=== PATIENT | male | born 1960 | race Caucasian/White ===

== ENCOUNTER → 2021-02-25 11:03 | Outpatient (CLI) | payer OTHER, SELFPAY ==
--- NOTE | ~2021-02-25 | XR_ITS ---
EXAMINATION: XR knee LT 3V EXAM DATE: 02/25/2021 11:19 INDICATION: M25.562 - Pain in left knee;gen pain;no recent injury. TECHNIQUE: Three projections of the left knee. Correlation is made to contralateral knee same date. FINDINGS: There is moderate osteoarthritis at the left medial tibiofemoral compartment, mild to moder ate the patellofemoral compartment and mild at the lateral tibiofemoral compartment. Small joint effu lazaro. There are no acute fractures or dislocations identified. There is no subcutaneous gas. There are no radiopaque foreign bodies. IMPRESSION: 1. Left knee osteoarthritis, moderate at the medial tibiofemoral compartment. 2. Small joint effusion. Reviewed, dictated and finalized at location A. ING FACILITATOR
--- NOTE | ~2021-02-25 | XR_ITS ---
EXAMINATION: XR knee RT 3V EXAM DATE: 02/25/2021 11:19 INDICATION: M25.561 - Pain in right knee;gen pain;no recent injury. TECHNIQUE: Three projections of the right knee. Correlation is made to contralateral knee same date. FINDINGS: There is moderate severe right knee medial tibiofemoral compartment primary osteoarthritis, moderate the patellofemoral compartment mild to moderate the lateral tibiofemoral compartment. There is small joint effusion. There are no acute fractures or dislocations identified. There is no subcu taneous gas. There are no radiopaque foreign bodies. IMPRESSION: 1. Right knee osteoarthritis, moderate to severe at the medial tibiofemoral compartment. 2. Small joint effusion. Reviewed, dictated and finalized at location A. BING CONTRACTOR IMPRESSION: 1. Right knee osteoarthritis, moderate to severe at the medial tibiofemoral com partment. 2. Small joint effusion.
== END ==
PROVIDERS: PCP Family Medicine; Visit Provider Family Medicine
DX: M25.461 Effusion, right knee (principal); M25.462 Effusion, left knee; M17.0 Bilateral primary osteoarthritis of knee
CPT/HCPCS: 73562

== ENCOUNTER 2021-05-22 07:57 | Outpatient (CLI) | payer OTHER, SELFPAY ==
--- NOTE | 2021-05-22 08:42 | ECG_ITS ---
Measurements Intervals [place] Rate: 59 P: 41 W[place]: 179 QRS: 13 QRSD: 89 T: 7 QT: 395 QTc: 392 Interpretive Statements SINUS BRADYCARDIA CONSIDER INFERIOR INFARCT, AGE INDETERMINATE ABNORMAL ECG Electronically Signed On 05-22-2021 9:12:47 AGRICULTURAL EQUIPMENT SALES MANAGER by Pato Franco D.O.
[2021-05-22 09:43] LABS: Basophils Absolute Auto 0.1 K/mm3 (0.0-0.1); Eosinophils Absolute Auto 0.2 K/mm3 (0-0.3); Eosinophils Percent Auto 3.1 % (0-4.4); Hematocrit 49.7 % (42.0-52.0); Hemoglobin 17.5 g/dL (14.0-18.0); Immature Granulocyte Absolute 0.01 K/mm3 (0.00-0.031); Immature Granulocyte Percent A 0.2 % (0-0.5); Immature Platelet Fraction Pct 2.8 % (0.9-11.2); Lymphocytes Absolute Auto 1.36 K/mm3 (0.9-3.2); Mean Corpuscular HGB Conc 35.2 g/dl (32-36); Mean Corpuscular Hemoglobin 31.7 pg (26-34); Mean Platelet Volume 9.3 fl (7.4-10.4); Monocytes Absolute Auto 0.6 K/mm3 (0.1-0.6); Monocytes Percent Auto 11.6 % (2.6-8.5); Neutrophils Absolute Auto 3.1 K/mm3 (1.3-6.7); Neutrophils Percent Auto 58.1 % (45.5-73.1); Platelet Count Result 260 k/mm3 (150-375); Red Blood Count 5.52 M/mm3 (4.6-6.20); White Blood Count 5.2 K/mm3 (4.5-10.0)
[2021-05-22 09:46] LABS: Add Urine Microscopic? YES; Appearance Urine Clear (Clear); Bilirubin Urine Negative (Negative); Blood Urine Negative (Negative); Color Urine Yellow (Yellow); Glucose Urine UA Negative (Negative); Ketones Urine Negative (Negative); Leukocyte Esterase Ur Negative LEU/UL (Negative); Mucus Urine Rare /lpf; Nitrate Urine Negative (Negative); Protein Urine Negative (Negative); RBC Urine 0-2 /hpf (0-2); Specific Grav Ur 1.016 (1.001-1.035); Urobilinogen Urine Negative mg/dL (<2.0); WBC Urine 0-3 /hpf
[2021-05-22 09:49] LABS: Partial Thromboplastin Time 30.1 SECONDS (22.3-36.8)
[2021-05-22 09:57] LABS: Urine Cotinine NEGATIVE
[2021-05-22 10:01] LABS: Hemoglobin A1C 5.1 % (<5.7)
== END 2021-05-22 07:58 | disposition home or self-care (01) ==
LOC: ANHSURGERY 08:01
PROVIDERS: PCP Family Medicine; Visit Provider Orthopaedic Surgery
DX: M17.11 Unilateral primary osteoarthritis, right knee (principal); Z01.818 Encounter for other preprocedural examination; R00.1 Bradycardia, unspecified
CPT/HCPCS: 80307; 81001; 83036; 85025; 85055; 85610; 85730; 86850; 86900; 86901; 87081; 93005

== ENCOUNTER 2021-05-31 00:34 | Day surgery (SDC) | payer OTHER, SELFPAY ==
[2021-05-22 07:37] VITALS: BP 126/80; PULSE 60; RESP 20; TEMP 36.4; O2SAT 98
[2021-05-22 07:58] VITALS: BMI 31.2
--- NOTE | 2021-05-22 07:58 | PC.NURSE ---
Report to the Outpatient Waiting Room, entrance under the green pavilion located off [facility], at time _0600_ on date _05/31/21_. OR Time: _0730_. - You will be asked a series of questions to screen for COVID 19 for your protection. - A mask is required within the hospital. - No visitors are allowed at this time. Preoperative COVID Testing Requirements: NONE Patients may have clear liquids (water, carbonated beverages, clear teas, apple juice) until 3 hours prior to surgery (0430 AM) with a maximum of 20 ounces. - No food from midnight until time of surgery Take the following medications with a SIP of water the morning of surgery: _AMLODIPINE__ Medications to discontinue per physician _ASPIRIN, VITAMINS/SUPPLEMENTS - PT STATES LAST DOSES WAS ON 05/20/21_ Please no deodorant, or body powder the day of surgery. No jewelry (including any body piercings) or valuables the day of surgery, leave them at home. Please take a shower or bath the night before, or the morning of, surgery with an antibacterial soap. Wear comfortable, loose fitting clothing. - Jewelry must be removed prior to entering the operating room. Rings and piercings that are not removed may be cut off. - The hospital will not accept responsibility for valuables. - Please leave all valuables, including medications, at home the day of surgery. If you are going home after surgery, a licensed parts delivery driver must drive you home. - NO public transportation without another adult. - We recommend that an adult stay with you for 24 hours following discharge. - We also recommend that you do not drive, make important decision, drink alcoholic beverages, or take any drugs that were not prescribed by your health care provider for at least 24 hours after your discharge time. Follow any additional instructions given to you from your surgeon. TOTAL JOINT CLASS 05/24/21 [facility] 1000 AM, USE MAIN ENTRANCE - LOWER LEVEL Instructions given to ____PT and asked if any additional questions and then verbalized understanding. Patient advised to call surgeon office or pre surgery nurse liaison [phone] if any additional questions.
[2021-05-31] VITALS (12 sets, daily range): BP systolic 120–143; BP diastolic 64–87; PULSE 58–94; RESP 12–20; TEMP 36–37.1; O2SAT 94–100; BMI 31.6
--- NOTE | ~2021-05-31 | XR_ITS ---
EXAMINATION: XR knee RT 2V DATE: 05/31/2021 10:32 INDICATION: Postoperative evaluation following right total knee arthroplasty. TECHNIQUE: Anteroposterior and lateral views of the right knee were obtained. COMPARISON: None. FINDINGS: Right total knee arthroplasty without patellar resurfacing appears well seated and in near anatomic a lignment. No fractures identified. Expected postoperative subcutaneous, intramedullary and intra-art icular gas. IMPRESSION: 1. Right total knee arthroplasty, negative for postoperative purposes. Reviewed, dictated and finalized at location A. TERIA AIDE
[2021-05-31] MEDS: ACETAMINOPHEN 500 MG TABLET 1000 MG PO (06:40)
[2021-05-31] MEDS: LACTATED RINGERS 1,000 ML 30 ML IV CONT ×2 (06:45→10:22)
--- NOTE | 2021-05-31 07:11 | P.PNAN_ITS ---
Anes - Initial Pre Proc Eval Procedure: Operation Date: 05/31/21 07:30 Proposed Procedures p Right Total Knee Arthroplasty - Rashaun Field MD Date/Time: 05/31/21 07:11 Surgeon: Rashaun Field MD Pre Op Diagnosis: right knee djd Patient Data Age: 61 Gender: M Height: 1.7 m Weight: 91.7 kg Last Vital Signs Temp 36.7 C 05/31/21 06:50 Pulse 58 L 05/31/21 06:50 Resp 16 05/31/21 06:50 BP 138/77 05/31/21 06:50 Pulse Ox 99 05/31/21 06:50 Allergies Allergy/AdvReac Type Severity Reaction Status Date / Time Penicillins Allergy Intermediate RASH & Verified 05/31/21 06:25 HIVES Home Medications Medication Instructions Recorded Confirmed Type aspirin 81 mg capsule 81 mg PO QAM 05/01/21 05/22/21 History amlodipine 10 mg PO QAM 05/22/21 05/31/21 History benazepril-hydrochlorothiazide 1 tablet PO QAM 05/22/21 05/31/21 History diphenhydramine HCl [ZzzQuil] 50 mg PO HS PRN 05/22/21 05/31/21 History omega-3 fatty acids [Fish Oil] 500 mg PO DAILY 05/22/21 05/22/21 History psyllium [Metamucil] 1 packet PO DAILY 05/22/21 05/31/21 History vitamin A-vitamin C-vit E-min 1 tablet PO QAM 05/22/21 05/22/21 History [Ocuvite] Patient hx anesthesia problems: none Family hx anesthesia problems: none Results Review: All pre-operative results and documents have been reviewed as part of the pre-operative evaluation. 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[employer]) State of [place] Gender identity (if verbalized by the patient): Male Sexual Orientation (if Verbalized by the Patient): Straight or Heterosexual Spiritual care concerns: No Anes - Eval Final PreProcedure Day of Procedure 05/31/21 07:11 Patient weight: obese Heart: regular rate and rhythm Lungs: clear to auscultation Airway: Mallampati scale class II Neurological: alert and oriented Last oral intake: >/= 8 hours ASA classification: III Emergent: no Anesthetic plan: proceed Anesthesia type and monitoring: general LMA and standard monitoring Results Review: All pre-operative results and documents have been reviewed as part of the pre-operative evaluation. Informed Consent: The patient's anesthetic plan and its attendant risks and benefits were discussed with the patient/family/POA. Questions were solicited and answers provided to the satisfaction of the patient/family/POA.
[2021-05-31] MEDS: TRANEXAMIC ACID 1,000MG/ISO100 1,000 MG/100 ML BAG 200 MG IVPB (07:14)
--- NOTE | 2021-05-31 07:24 | WPDHPUPDATE1 ---
History and Physical Update Update Date/Time: 05/31/21 07:24 History and Physical has been reviewed, including an updated exam of the patient. There are NO changes in the patient's condition. Risks, benefits, and alternatives have been discussed and questions answered. Patient agrees to proceed with procedure.
--- NOTE | 2021-05-31 07:36 | WPDANESPNB ---
Anes - Peripheral Nerve Block Date/Time: 05/31/21 07:36 I have discussed with the patient/family/POA the placement of a peripheral nerve block for post-operative pain management, including associated risks, benefits, complications, and side effects. Alternative methods of post-operative analgesia were detailed. Questions were solicited and answers provided to the satisfaction of the patient/family/POA. Time-Out: A pre-procedural Time-Out was completed immediately before starting the procedure and confirmed: Patient Identification, Site, Procedure, Patient Position and the Availability of Requisite Equipment. Clinical Indications: Acute post-operative pain management requested by the operative surgeon. Nerve Block Insertion Note Anes-nerve block: adductor canal right Patient position: supine Skin prep: chlorhexidine Needle: 22 gauge, stimulating, insulated echogenic needle. Needle length: 80 mm Technique: ultrasound Technique comment: mid2mg [id number] Injectate: bupivacaine 0.5% with epi 5 mcg/ml (30ml) and dexamethasone (mg) (4) Observations: tolerated well Complications: none Procedure start time:: 724 Procedure end time:: 731
[2021-05-31] MEDS: ceFAZolin 2 GM/D5W 50 ML 2 GM/50 ML BAG IVPB ×3 (07:37→23:27)
[2021-05-31] MEDS: TRANEXAMIC ACID 1,000 MG/10 ML AMPUL 1000 MG IV PUSH (09:31)
--- NOTE | 2021-05-31 10:35 | P.OP_ITS ---
Procedure Note - Detailed Date of Procedure 05/31/21 Pre-op Diagnosis right knee djd Post-op Diagnosis same Procedure Performed R TKA Surgeon Rashaun Field MD Anesthesia general Description of Procedure THE RIGHT KNEE WAS PREPPED AND DRAPED IN THE STERILE FASHION. THERE WAS A 20 DEGREE FLEXION CONTRACTURE. A MIDLINE SKIN INCISION WAS MADE. A MEDIAL PARAPATELLAR ARTHROTOMY WAS MADE. THE PATELLA WAS EVERTED. THERE WAS TRICOMPARTMENT DJD. THERE WAS MINIMAL PATELLA DJD. AN INTRAMEDULLARY JOSE ALFREDO WAS PLACED IN THE FEMUR. A DISTAL FEMORAL CUT WAS MADE IN 5 DEGREES OF VALGUS REMOVING APPROXIMATELY 11 MM OF BONE FROM THE DISTAL FEMUR. THE FEMUR WAS SIZED TO 67.5. A 67.5 FEMORAL CUTTING BLOCK WAS PLACED IN 3 DEGREES OF EXTERNAL ROTATION AND IN ALIGNMENT WITH ENRIKE'S LINE AND THE TRANSEPICONDYLAR AXIS. ANTERIOR POSTERIOR AND CHAMFER CUTS WERE MADE. THE CUTS WERE EXCELLENT. NEXT AN INTRAMEDULLARY CUTTING GUIDE WAS PLACED IN THE TIBIA. A TRANS TIBIAL CUT WAS MADE ALONG THE LONG AXIS OF THE TIBIA. APPROXIMATELY 10 MM OF BONE WAS REMOVED FROM THE HIGH SIDE OF THE TIBIA. THE TIBIA WAS THEN PLANED TO A SMOOTH SURFACE. POSTERIOR FEMORAL OSTEOPHYTES WERE REMOVED FROM THE FEMORAL CONDYLES. A 79 TIBIAL TRIAL WAS PLACED IN ALIGNMENT WITH THE 1/3 MEDIAL ASPECT OF THE TIBIAL TUBERCLE. THEN A 67.5 FEMORAL TRIAL COMPONENT WAS PLACED. BOTH HAD EXCELLENT FITS. EVENTUALLY A 12 MM CR POLYETHYLENE TRIAL COMPONENT WAS PLACED. THE KNEE WAS TAKEN THROUGH A RANGE OF MOTION. THE KNEE CAME OUT TO FULL EXTENSION. THERE WAS NO ABNORMAL TILT TO THE PATELLA. THERE WAS GOOD A/P AND VARUS/VALGUS STABILITY. THERE WAS NO EXCESSIVE ROLL BACK WITH FLEXION. THE TRIAL COMPONENTS WERE REMOVED. THEN A 67.5 FEMORAL COMPONENT AND 79 TIBIAL COMPONENT WITH A 12 CR POLYETHYLENE COMPONENT WERE CEMENTED INTO PLACE. ONCE THE CEMENT WAS HARD THE KNEE WAS TAKEN THROUGH A ROM AGAIN AND FOUND TO BE STABLE WITH NO PATELLA TILT NO EXCESSIVE ROLL BACK WITH FLEXION AND GOOD STABILITY WITH COMPLETE AND FULL EXTENSION. THE KNEE WAS IRRIGATED WITH STERILE BETADINE AND WATER FOR ABOUT 3 MINUTES. THE BLEEDERS WERE CAUTERIZED. THE ARTHROTOMY WAS REPAIRED WITH NUMBER 1 VICRYL. THE SUB CUTANEOUS LAYER WITH 2-0 VICRYL AND THE SKIN WITH 3-0 STRATAFIX AND DERMABOND. THE WOUND WAS WASHED AND A STERILE DRESSING WAS POLINA LIED. PATIENT WAS EXTUBATED. Estimated Blood Loss -150.0 Pathology none sent Complications No immediate complications Condition stable Disposition PACU
[2021-05-31] MEDS: fentaNYL CITRATE INJ (*CRX) 100 MCG/2 ML VIAL 25 MCG IV PUSH ×3 (11:10→11:21)
[2021-05-31] MEDS: SODIUM CHLORIDE 0.9% IV 1,000 ML 125 ML IV CONT (12:29)
[2021-05-31] MEDS: KETOROLAC 15 MG/ML VIAL (*BKC) IV PUSH ×3 (12:30→23:34)
--- NOTE | 2021-05-31 14:57 | ADMGEN ---
This patient, Edgar New, was admitted to [facility] Surgery-9 05/31/2021 at 1217. Patient/family oriented to hospital policies and general routines including ID bracelet, bed and alarms, visiting hours, pain management, procedures, bathroom and other care routines, personal items, smoking policy, room service/diet, and visiting hours. Information on how to activate the Rapid Response Team has been discussed. Patient/Family are encouraged to report perceived risks to care and to ask questions if they do not understand what they are told or what they should do.
[2021-05-31] MEDS: oxyCODONE/ACETAMINOPHEN (*CRX) 5-325 MG TABLET 1 TABLET PO (15:12)
[2021-05-31] MEDS: SENNA/DOCUSATE SODIUM TABLET 2 TAB PO (17:01)
[2021-05-31] MEDS: oxyCODONE HCL (*CRX) 5 MG TAB IR 10 MG PO (19:55)
[2021-05-31] MEDS: FAMOTIDINE 20 MG TABLET PO (21:01)
[2021-05-31] MEDS: diazePAM (*CRX) 5 MG TABLET PO (21:03)
[2021-06-01] MEDS: oxyCODONE HCL (*CRX) 5 MG TAB IR 10 MG PO ×2 (04:52→09:14)
[2021-06-01 05:36] LABS: Basophils Percent Auto 0.1 % (0.2-1.2); Eosinophils Percent Auto 0.1 % (0-4.4); Hematocrit 37.9 % (42.0-52.0); Immature Granulocyte Absolute 0.07 K/mm3 (0.00-0.031); Immature Granulocyte Percent A 0.5 % (0-0.5); Lymphocytes Absolute Auto 1.08 K/mm3 (0.9-3.2); Mean Corpuscular HGB Conc 34.3 g/dl (32-36); Mean Corpuscular Hemoglobin 31.9 pg (26-34); Mean Corpuscular Volume 93.1 fl (80-100); Mean Platelet Volume 8.9 fl (7.4-10.4); Monocytes Absolute Auto 1.4 K/mm3 (0.1-0.6); Monocytes Percent Auto 10.3 % (2.6-8.5); Neutrophils Absolute Auto 10.9 K/mm3 (1.3-6.7); Platelet Count Result 212 k/mm3 (150-375); Red Blood Count 4.07 M/mm3 (4.6-6.20); Red Cell Distribution Width 12.1 % (11.5-14.5); White Blood Count 13.4 K/mm3 (4.5-10.0)
[2021-06-01 05:50] LABS: Anion Gap 7 mmol/L (8-16); Blood Urea Nitrogen 15 mg/dL (9-20); Calcium 8.6 mg/dL (8.4-10.2); Carbon Dioxide 25 mmol/L (22-30); Chloride 104 mmol/L (98-107); Estimated CRCL calculation 103 ml/min; Estimated Glomerular Filt Rate > 60; Glucose 134 mg/dL (65-110); Sodium 136 mmol/L (137-145)
[2021-06-01] MEDS: KETOROLAC 15 MG/ML VIAL (*BKC) IV PUSH (05:54)
[2021-06-01 06:00] VITALS: BP 129/64; PULSE 71; RESP 20; TEMP 36.9; O2SAT 99
[2021-06-01] MEDS: ceFAZolin 2 GM/D5W 50 ML 2 GM/50 ML BAG IVPB (07:26)
[2021-06-01] MEDS: ASPIRIN 325 MG ENTERIC TABLET 650 MG PO (07:51)
[2021-06-01] MEDS: hydroCHLOROthiazide 12.5 MG CAPSULE PO (07:51)
[2021-06-01] MEDS: amLODIPine BESYLATE 5 MG TABLET 10 MG PO (07:51)
[2021-06-01] MEDS: SENNA/DOCUSATE SODIUM TABLET 2 TAB PO (07:51)
[2021-06-01] MEDS: polyethylene glycoL 3350 17 GM POWD.PACK PO (07:52)
[2021-06-01] MEDS: FAMOTIDINE 20 MG TABLET PO (07:52)
[2021-06-01] MEDS: lisinopriL 20 MG TABLET PO (07:52)
--- NOTE | 2021-06-01 08:48 | PM.PNORT ---
Progress Note: A&P Assessment and Plan (1) S/P total knee arthroplasty: Qualifiers: Laterality: right Qualified Code(s): Z96.651 - Presence of right artificial knee joint Code(s): Z96.659 - Presence of unspecified artificial knee joint Status: Acute Assessment and Plan: POD #1: Right TKA Continue PT/OT. WBAT. Walker. HIGH FALL RISK. Pain control. Ice machine. DVT prophylaxis with Aspirin. SCDs. Incentive Spirometry. Monitor dressing. Change prior to discharge. Send with one additional dressing. Dispo: Home with Home Health today Subjective Subjective Date/Time Seen: 06/01/21 08:48 Interval history: POD #1: Right TKA No new concerns. Ready for d/c home. Pain controlled. Working well with PT/OT. Review of Systems Review of Systems: All systems reviewed & are unremarkable except as noted in HPI and below Constitutional: Constitutional: Denies fever(s) and Denies headache(s) ENT: Denies headache(s) Cardiovascular: Cardiovascular: Denies chest pain, Denies diaphoresis, Denies palpitations and Denies dyspnea Respiratory: Respiratory: Denies dyspnea Gastrointestinal: Gastrointestinal: Denies abdominal pain, Denies constipation, Denies nausea and Denies vomiting Genitourinary: Genitourinary: Denies dysuria and Reports nocturia Musculoskeletal: Musculoskeletal: Reports arthralgias (Right Knee ) and Reports joint swelling (Right Knee ) Neurologic: Denies headache(s) Endocrine: Endocrine: Denies palpitations Exam Const: General: comfortable and no acute distress Resp: Effort & Inspection: normal respiratory effort Cardio: Rate: regular rate Rhythm: regular rhythm GI: GI Palp: Yes Soft to palpation, No Tenderness to palpation present (GI) and No Guarding due to palpation present (GI) Skin: Wounds: wounds noted Other: Incision c/d/i. No surrounding redness/warmth. No hematoma. Mild ecchymosis. No wound dehiscence Neuro: Cognition (Neuro): normal cognition Other: NV intact aside from block. Moves toes. Sensation intact to light touch. +ankle dorsiflexion/plantarflexion. Extrem: Right lower extremity: normal to inspection, knee Details: tenderness (diffuse, mild ), swelling (diffuse, mild ) and abnormal ROM (limited due to recent surgery ), lower leg (Negative Vanesa's Sign ) Details: normal to inspection, ankle (+ankle dorsiflexion/plantarflexion) and foot (2+ pedal pulses, sensation intact. ); ROM limited Left lower extremity: normal to inspection Psych: Mental Status: mental status grossly normal Objective Data Vital Signs Vital Signs: Vital Signs - 24 hr 05/31/21 10:22 05/31/21 10:35 05/31/21 10:50 Temperature 37.1 C Pulse Rate 91 81 82 Respiratory Rate 18 18 18 Blood Pressure 129/78 141/84 H 142/87 H Pulse Oximetry 98 100 100 05/31/21 11:05 05/31/21 11:20 05/31/21 11:35 Temperature Pulse Rate 77 70 61 Respiratory Rate 16 16 12 Blood Pressure 134/78 135/71 134/70 Pulse Oximetry 100 94 94 05/31/21 12:13 05/31/21 12:43 05/31/21 13:43 Temperature 36.2 C L 36.8 C 36.8 C Pulse Rate 68 78 66 Respiratory Rate 14 16 14 Blood Pressure 134/80 143/78 H 120/64 Pulse Oximetry 99 99 97 05/31/21 17:43 05/31/21 22:00 06/01/21 06:00 Temperature 36.4 C 36.0 C L 36.9 C Pulse Rate 89 94 71 Respiratory Rate 18 20 20 Blood Pressure 131/80 136/80 129/64 Pulse Oximetry 99 97 99 Intake/Output Intake/Output: Intake & Output 05/29/21 05/30/21 05/31/21 06/01/21 23:59 23:59 23:59 23:59 Intake Total 560 50 Output Total 975 Balance -415 50 Meds/Results Medications: Active Medications Generic Name Dose Route Start Last Admin Trade Name Freq PRN Reason Stop Dose Admin Acetaminophen 1,000 mg 05/31/21 11:58 Acetaminophen 500 Mg Tablet PO Q6H PRN Pain Rated 1-3 Amlodipine Besylate 10 mg 06/01/21 09:00 06/01/21 07:51 Amlodipine Besylate 5 Mg Tablet PO 10 mg QAM LUCINDA Administration Aspirin 650 mg
--- NOTE | 2021-06-01 08:51 | PM.DS ---
DS: Admitting Diagnosis Discharge Date 06/01/21 Admitting Diagnosis Right Knee DJD DS: Discharge Diagnosis Discharge Diagnosis (1) S/P total knee arthroplasty: Qualifiers: Laterality: right Qualified Code(s): Z96.651 - Presence of right artificial knee joint Code(s): Z96.659 - Presence of unspecified artificial knee joint Status: Acute Assessment and Plan: POD #1: Right TKA Continue PT/OT. WBAT. Walker. HIGH FALL RISK. Pain control. Ice machine. DVT prophylaxis with Aspirin. SCDs. Incentive Spirometry. Monitor dressing. Change prior to discharge. Send with one additional dressing. Dispo: Home with Home Health today DS: Summary Hospital Course Reason for hospitalization: Right TKA Hospital Course: 61 year old male admitted s/p right TKA for postoperative medical management, pain control and mobilization with PT/OT. Patient progressed very well on POD #1. Pain well controlled. Cleared by PT/OT. Labs stable. Vital signs stable. Patient will be discharged home with home health. Follow up in the outpatient orthopedic clinic arrnaged. Status at Discharge Functional status at discharge: uses cane/walker Overall status at discharge: patient is progressing back to baseline Time Spent with Patient Time attestation: Total time spent providing and/or coordinating discharge services: Exam Const: General: comfortable and no acute distress Resp: Effort & Inspection: normal respiratory effort Cardio: Rate: regular rate Rhythm: regular rhythm Skin: Wounds: wounds noted Other: Incision c/d/i. No surrounding redness/warmth. No hematoma. Mild ecchymosis. No wound dehiscence Neuro: Cognition (Neuro): normal cognition Other: NV intact aside from block. Moves toes. Sensation intact to light touch. +ankle dorsiflexion/plantarflexion. Extrem: Right lower extremity: normal to inspection, knee Details: tenderness (diffuse, mild ), swelling (diffuse, mild ) and abnormal ROM (limited due to recent surgery ), lower leg (Negative Vanesa's Sign ) Details: normal to inspection, ankle (+ankle dorsiflexion/plantarflexion) and foot (2+ pedal pulses, sensation intact. ); ROM limited Left lower extremity: normal to inspection Psych: Mental Status: mental status grossly normal DS: Data Data Completed and Pending Labs on day of discharge: Labs from last 24 hours 06/01/21 06/01/21 05:31 05:31 WBC 13.4 H RBC 4.07 L Hgb 13.0 L D Hct 37.9 L MCV 93.1 MCH 31.9 MCHC 34.3 RDW 12.1 Plt Count 212 MPV 8.9 Immature Gran % (Auto) 0.5 Neut % (Auto) 81.0 H Lymph % (Auto) 8.0 L Emmons % (Auto) 10.3 H Eos % (Auto) 0.1 Baso % (Auto) 0.1 L Lymph # (Auto) 1.08 Emmons # (Auto) 1.4 H Eos # (Auto) 0.0 Baso # (Auto) 0.0 Abs Immat Gran (auto) 0.07 H Absolute Neuts (auto) 10.9 H Absolute Nucleated RBC 0.0 Nucleated RBC % 0.0 Sodium 136 L Potassium 4.0 Chloride 104 Carbon Dioxide 25 Anion Gap 7 L BUN 15 Creatinine 0.70 Estim Creat Clear Calc 103 Estimated GFR > 60 Glucose 134 H Calcium 8.6 Discharge Plan Discharge Patient Disposition: Home Health Service Discharge Instructions: Per Care Coordination, patient to discharge with [facility] ([phone]) for PT/OT and custodial. Post Op Total Knee Replacement Instructions Dr. Rashaun Field [phone] ? Your dressing will be changed prior to your discharge. You will be sent home with one additional dressing to be changed on post op day 7 by the home health RN. Your margarita will be removed on the 14th day after surgery and steri-strips will be placed. Please practice good hand hygiene and do not touch your incision in order to prevent infection. ? You may shower with your dressing but do not submerge in a bath tub. ? Do not drive or operate machinery until you are released by Dr. Field. ? Do not walk without a walker for any reason until you are released by Dr. Arellano
--- NOTE | 2021-06-01 11:46 | P.PNAN_ITS ---
Anes - Prog Note Post-Op Date/Time: 06/01/21 11:46 Cardiovascular status: normal Respiratory status: normal Airway patency: baseline Mental status: baseline Post-Op hydration status: normal Vital Signs: Last Vital Signs Temp 36.9 C 06/01/21 06:00 Pulse 71 06/01/21 06:00 Resp 20 06/01/21 06:00 BP 129/64 06/01/21 06:00 Pulse Ox 99 06/01/21 06:00 Pain Score (VAS): 2 I/O: Intake & Output 05/31/21 06/01/21 06/01/21 23:59 07:59 15:59 Intake Total 240 100 120 Balance 240 100 120 Laboratory Tests 06/01/21 05:31 06/01/21 05:31 06/01/21 06/01/21 05:31 05:31 WBC 13.4 H RBC 4.07 L Hgb 13.0 L D Hct 37.9 L MCV 93.1 MCH 31.9 MCHC 34.3 RDW 12.1 Plt Count 212 MPV 8.9 Immature Gran % (Auto) 0.5 Neut % (Auto) 81.0 H Lymph % (Auto) 8.0 L [place] % (Auto) 10.3 H Eos % (Auto) 0.1 Baso % (Auto) 0.1 L Lymph # (Auto) 1.08 [place] # (Auto) 1.4 H Eos # (Auto) 0.0 Baso # (Auto) 0.0 Abs Immat Gran (auto) 0.07 H Absolute Neuts (auto) 10.9 H Absolute Nucleated RBC 0.0 Nucleated RBC % 0.0 Sodium 136 L Potassium 4.0 Chloride 104 Carbon Dioxide 25 Anion Gap 7 L BUN 15 Creatinine 0.70 Estim Creat Clear Calc 103 Estimated GFR > 60 Glucose 134 H Calcium 8.6 Post-procedural complaints: none Patient Feedback: Patient satisfied with anesthetic care.
== END 2021-06-01 10:45 | disposition home health service (06) ==
LOC: ANHSURGERY 06:10 → ANHSUROVER 12:00
PROVIDERS: PCP Family Medicine; Visit Provider Orthopaedic Surgery
PROC: (CPT 27447; principal; 2021-05-31 07:30)
DX: M17.11 Unilateral primary osteoarthritis, right knee (principal); G89.18 Other acute postprocedural pain; G47.33 Obstructive sleep apnea (adult) (pediatric); I10 Essential (primary) hypertension; F41.9 Anxiety disorder, unspecified; Z79.82 Long term (current) use of aspirin; F12.90 Cannabis use, unspecified, uncomplicated; E66.9 Obesity, unspecified; Z68.31 Body mass index [BMI] 31.0-31.9, adult
CPT/HCPCS: 27447; 64447; 36415; 73560; 80048; 85025; 97110; 97116; 97161; 97165; 97535; A9270; C1713; C1776; J0171; J0690; J1100; J1885; J2250; J2270; J2405; J2704; J2795; J3010; J7030; J7120

== ENCOUNTER 2021-08-17 10:00 | Outpatient (RCR) | payer OTHER, SELFPAY ==
--- NOTE | 2021-06-29 10:41 | PTOPEVAL ---
PHYSICAL THERAPY INITIAL EVALUATION. Thank you for referring Edgar New to [facility].? The patient is scheduled to be seen for therapy? 2x/week for 8 weeks. Please review, sign, date and return this plan of care TRA. I agree with and certify that the following plan of care is medically necessary. Referring Physician Date Attending Provider: Rashaun Field MD *PT Outpatient Evaluation Start: 06/28/21 Evaluation Information Diagnosis R TKA Onset 05/31/21 Additional Evaluation Detail Pt ambulated into the clinic today with a single point cane held in his R UE. He states he has been using it since after her follow up visit on Saturday. Subjective Information Pt had a TKA on 05/31/21 that Query Text:As Reported By Patient/ was uncomplicated in nature. Family He has 3 weeks of home health upon discharge and was discharged from there on . He followed up with Rashida on 06/26/21 and he was pleased with his progress. Pt states he is very active at baseline, he enjoys yoga and spin class. Pain Assessment Right Knee(s) Reported Pain Level 2 Pain Description Tightness Lowest Pain Intensity 2 Greatest Pain Intensity 5 Lower Extremity Range of Motion Right Knee Flexion Range of Motion - Active 90 Knee Extension Range of Motion - Active -8 Knee Range of Motion Comments L knee -4 - 123 Lower Extremity Muscle Strength Testing Knee Strength Right Knee Flexion Strength 3+ Fair + Knee Extension Strength 3+ Fair + Palpation Assessment Palpation Tender along proximal lateral knee Extremity Circumference Assessment Body Part Knee Circumference Comments R, L in cm Mid calf: 35.5, 33 infrapatellar: 37.5, 34 knee joint line: 42, 38.5 suprapatellar: 44.5, 39 Balance Assessment Time Up Go (TUG) Timed Up and Go Test (TUG) (Seconds) 13 Assistive Devices Cane, Small Base Quad 5 Time Sit to Stand Time in Seconds 15 5 Time Sit to Stand Comments Without the use of UEs, R LE Query Text:Normative Data: If Greater placed anterior, unequal Than 15 Seconds, 74% Increase Risk for weight shift to R LE Recurrent Falls Gait Assessment Ambulation Assistive Devices Cane Gait
--- NOTE | 2021-08-03 16:45 | PTOPEVAL ---
PHYSICAL THERAPY PROGRESS REPORT. Thank you for referring Edgar New to [facility].? The patient is scheduled to be seen for therapy?2x/week for 2 weeks. Please review, sign, date and return this plan of care TRA. I agree with and certify that the following plan of care is medically necessary. Referring Physician Date Attending Provider: Rashaun Field MD Evaluation Information Diagnosis R TKA Onset 05/31/21 Subjective Information Pt states overall he is very Query Text:As Reported By Patient/ pleased with his progress. He Family states he is still a little concerned about his swelling but knows this comes with time . He declines pain and just says it is stiff and sore. He is able to sleep through the night without being woken due to pain. Pain Assessment Pain Score Pain Score 0: Self Report Lower Extremity Range of Motion Right Knee Flexion Range of Motion - Active 123 Knee Extension Range of Motion - Active -1 Knee Range of Motion Comments L knee -4 - 126 Lower Extremity Muscle Strength Testing Right Knee Flexion Strength 5 Normal Knee Extension Strength 5 Normal Palpation Assessment Palpation just inferior to the medial knee joint line Balance Assessment Time Up Go (TUG) Timed Up and Go Test (TUG) (Seconds) 7 Assistive Devices None Comments Initially: 13s with straight cane 08/03/21: 7s without AD 5 Time Sit to Stand Time in Seconds 11 5 Time Sit to Stand Comments Initially: 15s Without the use Query Text:Normative Data: If Greater of UEs, R LE placed anterior, Than 15 Seconds, 74% Increase Risk for unequal weight shift to R LE Recurrent Falls 08/03/21: 11s with equal weight distribution Gait Assessment Other Gait Observations Decreased terminal knee extension on the R 2 Minute Walk Total Distance Walked (feet) 515 2 Minute Walk Gait Speed Score (feet/ 4.29 second) 2 Minute Walk Test Comments Initially: 265ft (2.20ft/sec) with use of single point cane 08/03/21: 515ft (4.29ft/sec) without AD PT Clinical Summary Edgar presents to therapy today following 11 visits of therapy to rehab his R TKA on 05/31/21. He demonstrates equal LE strength, and near equ
--- NOTE | 2021-08-17 10:27 | PTOPEVAL ---
PHYSICAL THERAPY PROGRESS REPORT AND DISCHARGE SUMMARY. Thank you for referring Edgar New to [facility].? The patient is be to discharged from therapy services at this time. Please review, sign, date and return this plan of care TRA. I agree with and certify that the following plan of care is medically necessary. Referring Physician Date Attending Provider: Rashaun Field MD Evaluation Information Diagnosis R TKA Onset 05/31/21 Subjective Information Pt states overall he feels Query Text:As Reported By Patient/ good and is doing good. He Family states occasionally he gets stiff and sore but states he is learning that this is to be expected. Pain Assessment Pain Score Pain Score 0: Self Report Lower Extremity Muscle Strength Testing General Lower Extremity Strength WFL/Left Knee Strength Right Knee Flexion Strength 5 Normal Knee Extension Strength 5 Normal Palpation Assessment Palpation mild just inferior to the medial knee joint line Balance Assessment Timed Up and Go Test (TUG) (Seconds) 7 Assistive Devices None Comments Initially: 13s with straight cane 08/03/21: 7s without AD 08/17/21: 7s without AD 5 Time Sit to Stand Time in Seconds 11 5 Time Sit to Stand Comments Initially: 15s Without the use Query Text:Normative Data: If Greater of UEs, R LE placed anterior, Than 15 Seconds, 74% Increase Risk for unequal weight shift to R LE Recurrent Falls 08/03/21: 11s with equal weight distribution 08/17/21: 11s with equal weight distribution Gait Assessment Other Gait Observations Decreased terminal knee extension bilaterally Stair Climbing Assessment Stair Climbing Comments decreased eccentric control gallo, increased R hip flexion, corrected with cueing PT Clinical Summary Edgar presents to therapy today following 14 visits of therapy to rehab his R TKA on 05/31/21. He demonstrates equal LE strength, and near equal knee range of motion. He continues to demonstrate gait abnormalities present with lack of terminal knee extension during gait but this is presents bilaterally. He
== END 2021-08-17 16:14 | disposition home or self-care (01) ==
LOC: ANHPT 10:00
PROVIDERS: PCP Family Medicine; Visit Provider Orthopaedic Surgery
DX: Z47.1 Aftercare following joint replacement surgery (principal); Z96.651 Presence of right artificial knee joint
CPT/HCPCS: 97014; 97110; 97112; 97116; 97140; 97161; 97530; G0283

== ENCOUNTER 2022-01-23 08:00 | Outpatient (CLI) | payer OTHER, SELFPAY ==
[2022-01-23 09:07] LABS: Basophils Absolute Auto 0.1 K/mm3 (0.0-0.1); Basophils Percent Auto 0.7 % (0.2-1.2); Eosinophils Absolute Auto 0.2 K/mm3 (0-0.3); Eosinophils Percent Auto 3.1 % (0-4.4); Hematocrit 51.4 % (42.0-52.0); Hemoglobin 17.6 g/dL (14.0-18.0); Immature Granulocyte Absolute 0.02 K/mm3 (0.00-0.031); Immature Granulocyte Percent A 0.3 % (0-0.5); Lymphocytes Absolute Auto 1.73 K/mm3 (0.9-3.2); Lymphocytes Percent Auto 24.5 % (18.3-44.2); Mean Corpuscular HGB Conc 34.2 g/dl (32-36); Mean Corpuscular Hemoglobin 30.7 pg (26-34); Mean Corpuscular Volume 89.5 fl (80-100); Mean Platelet Volume 8.6 fl (7.4-10.4); Monocytes Absolute Auto 0.7 K/mm3 (0.1-0.6); Monocytes Percent Auto 9.4 % (2.6-8.5); Neutrophils Absolute Auto 4.4 K/mm3 (1.3-6.7); Platelet Count Result 275 k/mm3 (150-375); Red Blood Count 5.74 M/mm3 (4.6-6.20); White Blood Count 7.1 K/mm3 (4.5-10.0)
[2022-01-23 09:10] LABS: Add Urine Microscopic? NO; Appearance Urine Clear (Clear); Bilirubin Urine Negative (Negative); Blood Urine Negative (Negative); Color Urine Straw (Yellow); Glucose Urine UA Negative (Negative); Ketones Urine Negative (Negative); Leukocyte Esterase Ur Negative LEU/UL (Negative); Nitrate Urine Negative (Negative); Protein Urine Negative (Negative); Specific Grav Ur 1.012 (1.001-1.035); Urobilinogen Urine Negative mg/dL (<2.0)
[2022-01-23 09:23] LABS: Prothrombin Time 12.9 Seconds (11.1-14.7)
[2022-01-23 09:29] LABS: Anion Gap 13 mmol/L (8-16); Blood Urea Nitrogen 18 mg/dL (9-20); Calcium 10.1 mg/dL (8.4-10.2); Carbon Dioxide 32 mmol/L (22-30); Chloride 99 mmol/L (98-107); Estimated Glomerular Filt Rate > 60; Glucose 122 mg/dL (65-110); Potassium 4.4 mmol/L (3.4-5.0); Sodium 144 mmol/L (137-145)
[2022-01-23 09:41] LABS: Urine Cotinine NEGATIVE
[2022-01-23 11:35] LABS: Hemoglobin A1C 5.6 % (<5.7)
== END 2022-01-23 08:01 | disposition home or self-care (01) ==
LOC: ANHSURGERY 08:03
PROVIDERS: PCP Family Medicine; Visit Provider Orthopaedic Surgery
DX: M17.12 Unilateral primary osteoarthritis, left knee (principal); Z01.818 Encounter for other preprocedural examination
CPT/HCPCS: 80048; 80307; 81003; 82040; 83036; 85025; 85610; 85730; 87081

== ENCOUNTER 2022-02-06 00:09 | Day surgery (SDC) | payer OTHER, SELFPAY ==
--- NOTE | 2022-01-23 07:59 | PC.NURSE ---
Report to the Outpatient Waiting Room, entrance under the green pavilion located off [facility], at time __6:00AM on date __02/06/22 . Planned Procedure Time: __7:30AM . Time changes happen often and if your time is changed the preop area will call you the afternoon before. - You and your visitor will be asked to self-screen and do not enter if you have any COVID symptoms. - We encourage only one visitor and NO visitors under age 16 are allowed at this time. Your visitor will receive communication by the phone number that is given day of service. - The patient visitor is requested to social distance or may leave the building when not with patient due to restrictions. - A mask is required within the hospital. Patients may have clear liquids (water, carbonated beverages, clear teas, apple juice) until 3 hours prior to surgery with a maximum of 20 ounces. - No food from midnight until time of surgery Take the following medications with a SIP of water the morning of surgery: ____AMLODIPINE Medications to discontinue per physician HOLD ASPIRIN PER DR MILAN (PT CALLING OFFICE) ___HOLD ALL VITAMINS/SUPPLEMENTS 3 DAYS PRE-OP- LAST DOSE 02/02/22 Please no make-up, nail lao, hairspray, perfume, deodorant, or body powder the day of surgery. No jewelry (including any body piercings) or valuables the day of surgery, leave them at home. Please take a shower or bath the night before, or the morning of, surgery with an antibacterial soap. Wear comfortable, loose fitting clothing. Children are encouraged to wear pajamas. - Jewelry must be removed prior to entering the operating room. Rings and piercings that are not removed may be cut off. - The hospital will not accept responsibility for valuables. - Please leave all valuables, including medications, at home the day of surgery. If you are going home after surgery, a licensed electric mule driver must drive you home. - NO public transportation without another adult. - We recommend that an adult stay with you for 24 hours following discharge. - We also recommend that you do not drive, make important decision, drink alcoholic beverages, or take any drugs that were not prescribed by your health care provider for at least 24 hours after your discharge time. Follow any additional instructions given to you from your surgeon. If you or anyone in your household have experienced Covid symptoms in the past week, please notify your surgeon or the nurse liaison at the phone number below for possible testing. Telephone instructions given to __PATIENT and asked if any additional questions and then verbalized understanding. Patient advised to call surgeon office or pre surgery nurse liaison [phone] if any additional questions.
[2022-01-23 08:17] VITALS: BP 146/86; PULSE 60; RESP 16; TEMP 36.5; O2SAT 98; BMI 30.8
[2022-02-06] VITALS (14 sets, daily range): BP systolic 117–148; BP diastolic 65–95; PULSE 68–98; RESP 14–18; TEMP 36.2–36.7; O2SAT 93–99
--- NOTE | ~2022-02-06 | XR_ITS ---
EXAMINATION: XR knee LT 2V DATE: 02/06/2022 10:30 INDICATION: Total left knee arthroplasty. Postop. TECHNIQUE: 2 views of left knee were obtained. COMPARISON: Left knee radiographs 01/29/2022 FINDINGS: There is a total left knee arthroplasty without patellar resurfacing in near-anatomic align ment. No fracture. There is gas in the knee joint and soft tissues, consistent with recent surgery. A nterior skin margarita are noted. IMPRESSION: 1. Total left knee arthroplasty in near-anatomic alignment. Reviewed, dictated and finalized at location A.
[2022-02-06] MEDS: ACETAMINOPHEN 500 MG TABLET 1000 MG PO (06:50)
[2022-02-06] MEDS: TRANEXAMIC ACID 1,000MG/ISO100 1,000 MG/100 ML BAG 200 MG IVPB (07:00)
[2022-02-06] MEDS: LACTATED RINGERS 1,000 ML 30 ML IV CONT ×2 (07:00→10:12)
--- NOTE | 2022-02-06 07:07 | WPDANESEPPF ---
Anes - Initial Pre Proc Eval Procedure: Operation Date: 02/06/22 07:30 Proposed Procedures p Left Total Knee Arthroplasty - Rashaun Field MD Date/Time: 02/06/22 07:07 Surgeon: Rashaun Field MD Pre Op Diagnosis: left knee DJD Patient Data Age: 61 Gender: M Height: 1.71 m Weight: 90.5 kg Last Vital Signs Temp 36.2 C L 02/06/22 06:57 Pulse 77 02/06/22 06:57 Resp 14 02/06/22 06:57 BP 142/74 H 02/06/22 06:57 Pulse Ox 97 02/06/22 06:57 O2 Del Method Room Air 02/06/22 06:57 Allergies Allergy/AdvReac Type Severity Reaction Status Date / Time Penicillins Allergy Intermediate RASH & Verified 02/06/22 07:02 HIVES Home Medications Medication Instructions Recorded Confirmed Type aspirin 81 mg capsule 81 mg PO QAM 05/01/21 01/29/22 History amlodipine 10 mg tablet 10 mg PO QAM 05/22/21 01/29/22 History benazepril 20 1 tablet PO QAM 05/22/21 01/29/22 History mg-hydrochlorothiazide 12.5 mg tablet diphenhydramine HCl 50 mg/30 mL 50 mg PO HS PRN Sleep 05/22/21 01/29/22 History oral liquid (ZzzQuil) omega-3 fatty acids 500 mg PO DAILY 05/22/21 01/29/22 History psyllium 1 packet PO DAILY 05/22/21 01/29/22 History vitamin A-vitamin C-vit E-min 1 tablet PO QAM 05/22/21 01/29/22 History tablet chlorhexidine gluconate 4 % 1 applic topical ONCE #237 mL 01/30/22 Rx topical liquid (Hibiclens) Patient hx anesthesia problems: none Family hx anesthesia problems: none Results Review: All pre-operative results and documents have been reviewed as part of the pre-operative evaluation. [facility] Past Medical History Medical History Anxiety Degenerative joint disease of knee, right Elevated fasting blood sugar Hypertension Knee pain, right Left knee DJD Obstructive sleep apnea Surgical History Surgical History History of arthroscopy of left knee 1994 Hx of appendectomy 1972 S/P total knee arthroplasty RIGHT KNEE 05/31/21 Family History Family History Other Hypertension Social History Social History Smoking status: Never smoker Second hand tobacco smoke exposure: No Additional smoking assessment comments: PT DENIES ALL FORMS OF TOBACCO USE Alcohol intake: never Substance use: current Substance use type: marijuana Other substance usage details: 1 HIT DAILY AFTER WORK Living arrangements: with family Additional living arrangements comments: with Spouse 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[employer]) State of [place] Gender identity (if verbalized by the patient): Male Sexual Orientation (if Verbalized by the Patient): Straight or Heterosexual Spiritual care concerns: No Anes - Eval Final PreProcedure Day of Procedure 02/06/22 07:07 Patient weight: obese Heart: regular rate and rhythm Lungs: clear to auscultation Airway: Mallampati scale class II Neurological: alert and oriented Last oral intake: >/= 8 hours ASA classification: III Anesthetic plan: proceed Anesthesia type and monitoring: general LMA and standard monitoring Results Review: All pre-operative results and documents have been reviewed as part of the pre-operative evaluation. Informed Consent: The patient's anesthetic plan and its attendant risks and benefits were discussed with the patient/family/POA. Questions were solicited and answers provided to the satisfaction of the patient/family/POA.
--- NOTE | 2022-02-06 07:15 | WPDHPUPDATE1 ---
History and Physical Update Update Date/Time: 02/06/22 07:15 History and Physical has been reviewed, including an updated exam of the patient. There are NO changes in the patient's condition. Risks, benefits, and alternatives have been discussed and questions answered. Patient agrees to proceed with procedure.
--- NOTE | 2022-02-06 07:41 | WPDANESPNB ---
Anes - Peripheral Nerve Block Date/Time: 02/06/22 07:41 I have discussed with the patient/family/POA the placement of a peripheral nerve block for post-operative pain management, including associated risks, benefits, complications, and side effects. Alternative methods of post-operative analgesia were detailed. Questions were solicited and answers provided to the satisfaction of the patient/family/POA. Time-Out: A pre-procedural Time-Out was completed immediately before starting the procedure and confirmed: Patient Identification, Site, Procedure, Patient Position and the Availability of Requisite Equipment. Clinical Indications: Acute post-operative pain management requested by the operative surgeon. Nerve Block Insertion Note Anes-nerve block: femoral left Patient position: supine Skin prep: chlorhexidine Needle: 22 gauge, stimulating, insulated echogenic needle. Needle length: 80 mm Technique: nerve stimulation lost at (mA) (0.3) Injectate: bupivacaine 0.25% with epi 5 mcg/ml (30cc) Observations: tolerated well Complications: none Procedure start time:: 735 Procedure end time:: 738
[2022-02-06] MEDS: ceFAZolin 2 GM/D5W 50 ML 2 GM/50 ML BAG IVPB ×3 (07:44→23:06)
[2022-02-06] MEDS: GENTAMICIN BONE CEMENT REFOBACIN 1 EACH TOPICAL (08:59)
[2022-02-06] MEDS: TRANEXAMIC ACID 1,000 MG/10 ML AMPUL 1000 MG IV PUSH (09:22)
[2022-02-06] MEDS: fentaNYL CITRATE INJ (*CRX) 100 MCG/2 ML VIAL 25 MCG IV PUSH ×5 (10:31→11:12)
--- NOTE | 2022-02-06 10:35 | W.PM.PROC2 ---
Procedure Note - Detailed Date of Procedure 02/06/22 Pre-op Diagnosis left knee DJD Post-op Diagnosis Same Procedure Performed L TKA Surgeon Rashaun Field MD Anesthesia General Description of Procedure THE LEFT KNEE WAS PREPPED AND DRAPED IN THE STERILE FASHION. THERE WAS A 20 DEGREE FLEXION CONTRACTURE. A MIDLINE SKIN INCISION WAS MADE. A MEDIAL PARAPATELLAR ARTHROTOMY WAS MADE. THE PATELLA WAS EVERTED. THERE WAS TRICOMPARTMENT DJD. THERE WAS MINIMAL PATELLA DJD. AN INTRAMEDULLARY JOSE ALFREDO WAS PLACED IN THE FEMUR. A DISTAL FEMORAL CUT WAS MADE IN 5 DEGREES OF VALGUS REMOVING APPROXIMATELY 11 MM OF BONE FROM THE DISTAL FEMUR. THE FEMUR WAS SIZED TO 67.5. A 67.5 FEMORAL CUTTING BLOCK WAS PLACED IN 3 DEGREES OF EXTERNAL ROTATION AND IN ALIGNMENT WITH NERIKE'S LINE AND THE TRANSEPICONDYLAR AXIS. ANTERIOR POSTERIOR AND CHAMFER CUTS WERE MADE. THE CUTS WERE EXCELLENT. NEXT AN INTRAMEDULLARY CUTTING GUIDE WAS PLACED IN THE TIBIA. A TRANS TIBIAL CUT WAS MADE ALONG THE LONG AXIS OF THE TIBIA. APPROXIMATELY 10 MM OF BONE WAS REMOVED FROM THE HIGH SIDE OF THE TIBIA. THE TIBIA WAS THEN PLANED TO A SMOOTH SURFACE. POSTERIOR FEMORAL OSTEOPHYTES WERE REMOVED FROM THE FEMORAL CONDYLES. A 75 TIBIAL TRIAL WAS PLACED IN ALIGNMENT WITH THE 1/3 MEDIAL ASPECT OF THE TIBIAL TUBERCLE. THEN A 67.5 FEMORAL TRIAL COMPONENT WAS PLACED. BOTH HAD EXCELLENT FITS. EVENTUALLY A 10 MM POLYETHYLENE TRIAL COMPONENT WAS PLACED. THE KNEE WAS TAKEN THROUGH A RANGE OF MOTION. THE KNEE CAME OUT TO FULL EXTENSION. THERE WAS NO ABNORMAL TILT TO THE PATELLA. THERE WAS GOOD A/P AND VARUS/VALGUS STABILITY. THERE WAS NO EXCESSIVE ROLL BACK WITH FLEXION. THE TRIAL COMPONENTS WERE REMOVED. THEN A 67.5 FEMORAL COMPONENT AND 75 TIBIAL COMPONENT WITH A 10 POLYETHYLENE COMPONENT WERE CEMENTED INTO PLACE. ONCE THE CEMENT WAS HARD THE KNEE WAS TAKEN THROUGH A ROM AGAIN AND FOUND TO BE STABLE WITH NO PATELLA TILT NO EXCESSIVE ROLL BACK WITH FLEXION AND GOOD STABILITY WITH COMPLETE AND FULL EXTENSION. THE KNEE WAS IRRIGATED WITH STERILE BETADINE AND WATER FOR ABOUT 3 MINUTES. THE BLEEDERS WERE CAUTERIZED. THE ARTHROTOMY WAS REPAIRED WITH NUMBER 1 VICRYL. THE SUB CUTANEOUS LAYER WITH 2-0 VICRYL AND THE SKIN WITH SANJUANA. THE WOUND WAS WASHED AND A STERILE DRESSING WAS APPLIED. PATIENT WAS EXTUBATED. Estimated Blood Loss -100.0 Pathology None sent Complications No immediate complications Condition Stable Disposition PACU
[2022-02-06] MEDS: SODIUM CHLORIDE 0.9% IV 1,000 ML 125 ML IV CONT (13:03)
[2022-02-06] MEDS: KETOROLAC 15 MG/ML VIAL (*BKC) IV PUSH ×3 (13:03→23:06)
--- NOTE | 2022-02-06 13:11 | PC.NURSE ---
This patient, Edgar New, was admitted to Medical Room 343-01. Patient/family oriented to hospital policies and general routines including ID bracelet, bed and alarms, visiting hours, pain management, procedures, bathroom and other care routines, personal items, smoking policy, room service/diet, and visiting hours. Information on how to activate the Rapid Response Team has been discussed. Patient/Family are encouraged to report perceived risks to care and to ask questions if they do not understand what they are told or what they should do.
[2022-02-06] MEDS: oxyCODONE/ACETAMINOPHEN (*CRX) 5-325 MG TABLET 2 TABLET PO ×2 (14:22→20:31)
[2022-02-06] MEDS: SENNA/DOCUSATE SODIUM TABLET 2 TAB PO (17:39)
[2022-02-06] MEDS: ASPIRIN 325 MG ENTERIC TABLET PO (20:28)
[2022-02-07 00:03] VITALS: BP 115/62; PULSE 62; RESP 18; TEMP 36.6; O2SAT 98
[2022-02-07] MEDS: oxyCODONE/ACETAMINOPHEN (*CRX) 5-325 MG TABLET 2 TABLET PO ×2 (03:37→10:35)
[2022-02-07 04:38] VITALS: BP 119/56; PULSE 71; RESP 18; TEMP 36.6; O2SAT 99
[2022-02-07] MEDS: KETOROLAC 15 MG/ML VIAL (*BKC) IV PUSH ×2 (05:48→12:23)
[2022-02-07 06:58] LABS: Basophils Percent Auto 0.2 % (0.2-1.2); Eosinophils Percent Auto 0.1 % (0-4.4); Hematocrit 40.1 % (42.0-52.0); Hemoglobin 13.4 g/dL (14.0-18.0); Immature Granulocyte Percent A 0.6 % (0-0.5); Lymphocytes Absolute Auto 1.33 K/mm3 (0.9-3.2); Lymphocytes Percent Auto 7.8 % (18.3-44.2); Mean Corpuscular HGB Conc 33.4 g/dl (32-36); Mean Corpuscular Hemoglobin 29.8 pg (26-34); Mean Corpuscular Volume 89.1 fl (80-100); Mean Platelet Volume 9.1 fl (7.4-10.4); Monocytes Absolute Auto 1.6 K/mm3 (0.1-0.6); Monocytes Percent Auto 9.1 % (2.6-8.5); Neutrophils Percent Auto 82.2 % (45.5-73.1); Platelet Count Result 252 k/mm3 (150-375); Red Cell Distribution Width 11.9 % (11.5-14.5)
[2022-02-07 07:03] LABS: Anion Gap 8 mmol/L (8-16); Blood Urea Nitrogen 17 mg/dL (9-20); Calcium 8.2 mg/dL (8.4-10.2); Carbon Dioxide 26 mmol/L (22-30); Chloride 101 mmol/L (98-107); Estimated CRCL calculation 103 ml/min; Estimated Glomerular Filt Rate > 60; Glucose 126 mg/dL (65-110); Potassium 3.7 mmol/L (3.4-5.0); Sodium 135 mmol/L (137-145)
[2022-02-07 09:06] VITALS: BP 117/57; PULSE 64; RESP 16; TEMP 36.8; O2SAT 97
[2022-02-07] MEDS: lisinopriL 20 MG TABLET PO (09:07)
[2022-02-07] MEDS: hydroCHLOROthiazide 12.5 MG CAPSULE PO (09:07)
[2022-02-07] MEDS: ASPIRIN 325 MG ENTERIC TABLET PO (09:07)
[2022-02-07] MEDS: amLODIPine BESYLATE 5 MG TABLET 10 MG PO (09:07)
[2022-02-07] MEDS: SENNA/DOCUSATE SODIUM TABLET 2 TAB PO (09:07)
[2022-02-07] MEDS: polyethylene glycoL 3350 17 GM POWD.PACK PO (09:07)
[2022-02-07] MEDS: ceFAZolin 2 GM/D5W 50 ML 2 GM/50 ML BAG IVPB (09:14)
--- NOTE | 2022-02-07 10:54 | P.PNAN_ITS ---
Anes - Prog Note Post-Op Date/Time: 02/07/22 08:45 Cardiovascular status: normal Respiratory status: normal Airway patency: baseline Mental status: baseline Post-Op hydration status: normal Vital Signs: Last Vital Signs Temp 98.3 F 02/07/22 09:06 Pulse 64 02/07/22 09:06 Resp 16 02/07/22 09:06 BP 117/57 L 02/07/22 09:06 Pulse Ox 97 02/07/22 09:06 O2 Del Method Room Air 02/06/22 20:00 O2 Flow Rate 2 02/06/22 11:20 Pain Score (VAS): 6 I/O: Intake & Output 02/06/22 02/07/22 02/07/22 23:59 07:59 15:59 Intake Total 1340 350 225 Output Total 500 300 Balance 840 50 225 Laboratory Tests 02/07/22 05:47 02/07/22 05:47 02/07/22 02/07/22 05:47 05:47 WBC 17.0 H RBC 4.50 L Hgb 13.4 L D Hct 40.1 L MCV 89.1 MCH 29.8 MCHC 33.4 RDW 11.9 Plt Count 252 MPV 9.1 Immature Gran % (Auto) 0.6 H Neut % (Auto) 82.2 H Lymph % (Auto) 7.8 L [place] % (Auto) 9.1 H Eos % (Auto) 0.1 Baso % (Auto) 0.2 Lymph # (Auto) 1.33 [place] # (Auto) 1.6 H Eos # (Auto) 0.0 Baso # (Auto) 0.0 Abs Immat Gran (auto) 0.10 H Absolute Neuts (auto) 14.0 H Absolute Nucleated RBC 0.0 Nucleated RBC % 0.0 Sodium 135 L Potassium 3.7 Chloride 101 Carbon Dioxide 26 Anion Gap 8 BUN 17 Creatinine 0.70 Estim Creat Clear Calc 103 Estimated GFR > 60 Glucose 126 H Calcium 8.2 L Post-procedural complaints: other (pt verbalized displeasure with PNB, states he received a FNB for his previous knee & this provided much better relief than the adductor canal. spoke with patient regarding differences in blocks & surgeon preference. pt v/u) Patient Feedback: Patient satisfied with anesthetic care.
[2022-02-07 13:06] VITALS: BP 103/66; PULSE 60; RESP 16; TEMP 35.6; O2SAT 98
--- NOTE | 2022-02-07 14:57 | PM.PNORT ---
Progress Note: A&P Assessment and Plan (1) Left knee DJD: Code(s): M17.12 - Unilateral primary osteoarthritis, left knee Status: Acute (2) S/P total knee arthroplasty: Qualifiers: Laterality: right Qualified Code(s): Z96.651 - Presence of right artificial knee joint Code(s): Z96.659 - Presence of unspecified artificial knee joint Status: Acute Assessment and Plan: LEFT KNEE TKA POD 1 DOING WELL WITH PAIN CONTROLLED AND DOING WELL WITH PT. OK TO DC HOME F/U IN 3 WEEKS. Subjective Subjective Date/Time Seen: 02/07/22 14:57 POD 1 DOING VERY WELL. NO CALF PAIN. DOING WELL WITH PT. PAIN WELL CONTROLLED Exam Extrem: Other: VSS AFEBRILE DRESSING DRY NV INTACT NEG HOMANS SIGN, CALF SOFT. Objective Data Vital Signs Vital Signs: Vital Signs - 24 hr 02/06/22 19:00 02/06/22 20:04 02/06/22 20:00 Temperature 36.7 C 36.2 C L Pulse Rate 70 68 68 Respiratory Rate 18 18 18 Blood Pressure 121/70 117/65 Pulse Oximetry 97 98 98 Oxygen Delivery Room Air 02/07/22 00:03 02/07/22 04:38 02/07/22 09:06 Temperature 36.6 C 36.6 C 36.8 C Pulse Rate 62 71 64 Respiratory Rate 18 18 16 Blood Pressure 115/62 119/56 L 117/57 L Pulse Oximetry 98 99 97 Oxygen Delivery 02/07/22 08:00 Temperature Pulse Rate Respiratory Rate Blood Pressure Pulse Oximetry Oxygen Delivery Room Air Intake/Output Intake/Output: Intake & Output 02/04/22 02/05/22 02/06/22 02/07/22 23:59 23:59 23:59 23:59 Intake Total 1830 625 Output Total 800 450 Balance 1030 175 Meds/Results Medications: Active Medications Generic Name Dose Route Start Last Admin Trade Name Freq PRN Reason Stop Dose Admin Acetaminophen 1,000 mg 02/06/22 11:21 Acetaminophen 500 Mg Tablet PO Q6H PRN Pain Rated 1-3 Amlodipine Besylate 10 mg 02/07/22 09:00 02/07/22 09:07 Amlodipine Besylate 5 Mg Tablet PO 10 mg QAM LUCINDA Administration Aspirin 325 mg 02/06/22 21:00 02/07/22 09:07 Aspirin 325 Mg Enteric Tablet PO 325 mg Q12HR LUCINDA Administration Diazepam 5 mg 02/06/22 11:21 Diazepam (*Crx) 5 Mg Tablet PO Q8H PRN Spasms Diphenhydramine HCl 25 mg 02/06/22 11:21 Diphenhydramine Hcl Inj 50 Mg/Ml Vial IV PUSH Q6H PRN Itching Hydrochlorothiazide 12.5 mg 02/07/22 09:00 02/07/22 09:07 Hydrochlorothiazide 12.5 Mg Capsule PO 12.5 mg QAM LUCINDA Administration Lisinopril 20 mg 02/07/22 09:00 02/07/22 09:07 Lisinopril 20 Mg Tablet PO 20 mg QAM LUCINDA Administration Naloxone HCl 0.1 mg 02/06/22 11:21 Naloxone Hcl 0.4 Mg/Ml Vial IV PUSH Q2M PRN Opiate Reversal Ondansetron HCl 4 mg 02/06/22 11:21 Ondansetron Inj 4 Mg/2 Ml Vial IV PUSH Q4H PRN Nausea And Vomiting Oxycodone/Acetaminophen 1 tablet 02/06/22 11:21 Oxycodone/Acetaminophen (*Crx) 5-325 Mg Tablet PO Q4H PRN Pain Rated 4-6 Oxycodone/Acetaminophen 2 tablet 02/06/22 11:21 02/07/22 10:35 Oxycodone/Acetaminophen (*Crx) 5-325 Mg Tablet PO 2 tablet Q6H PRN Administration Pain Rated 7-10 Polyethylene Glycol 17 gm 02/07/22 09:00 02/07/22 09:07 Polyethylene Glycol 3350 17 Gm Powd.Pack PO 17 gm QAM LUCINDA Administration Senna/Docusate Sodium 2 tab 02/06/22 17:00 02/07/22 09:07 Senna/Docusate Sodium Tablet PO 2 tab BID LUCINDA Administration Radiology Results: ITS Impressions Knee X-Ray 02/06/22 10:39 IMPRESSION: 1. Total left knee arthroplasty in near-anatomic alignment. Labs Labs: Laboratory Results - last 24 hr 02/07/22 02/07/22 05:47 05:47 WBC 17.0 H RBC 4.50 L Hgb 13.4 L D Hct 40.1 L MCV 89.1 MCH 29.8 MCHC 33.4 RDW 11.9 Plt Count 252 MPV 9.1 Immature Gran % (Auto) 0.6 H Neut % (Auto) 82.2 H Lymph % (Auto) 7.8 L [place] % (Auto) 9.1 H Eos % (Auto) 0.1 Baso % (Auto) 0.2 Lymph # (Auto) 1.33 [place] # (Auto) 1.6 H Eos # (Auto) 0
--- NOTE | 2022-02-07 15:00 | PM.DS ---
DS: Admitting Diagnosis Discharge Date 02/07/22 Admitting Diagnosis LEFT KNEE DJD DS: Discharge Diagnosis Discharge Diagnosis (1) Left knee DJD: Code(s): M17.12 - Unilateral primary osteoarthritis, left knee Status: Acute DS: Summary Hospital Course Reason for hospitalization: LEFT TKA Hospital Course: PATIENT WAS ADMITTED S/P LEFT TOTAL KNEE ARTHROPLASTY FOR POSTOPERATIVE MEDICAL MANAGEMENT, PAIN CONTROL AND MOBILIZATION WITH PHYSICAL AND OCCUPATIONAL THERAPY. THE PATIENT PROGRESSED WELL WITH PT/OT. LABS AND VITALS REMAINED STABLE AND PAIN WELL CONTROLLED. THE PATIENT HAS BEEN CLEARED TO BE DISCHARGED TO HOME. FOLLOW UP APPOINTMENT SCHEDULED. DISCHARGE INSTRUCTIONS DISCUSSED AT LENGTH WITH THE PATIENT. MEDICATIONS REVIEWED. Time Spent with Patient Time attestation: Total time spent providing and/or coordinating discharge services: DS: Data Data Completed and Pending Labs on day of discharge: Labs from last 24 hours 02/07/22 02/07/22 05:47 05:47 WBC 17.0 H RBC 4.50 L Hgb 13.4 L D Hct 40.1 L MCV 89.1 MCH 29.8 MCHC 33.4 RDW 11.9 Plt Count 252 MPV 9.1 Immature Gran % (Auto) 0.6 H Neut % (Auto) 82.2 H Lymph % (Auto) 7.8 L [place] % (Auto) 9.1 H Eos % (Auto) 0.1 Baso % (Auto) 0.2 Lymph # (Auto) 1.33 [place] # (Auto) 1.6 H Eos # (Auto) 0.0 Baso # (Auto) 0.0 Abs Immat Gran (auto) 0.10 H Absolute Neuts (auto) 14.0 H Absolute Nucleated RBC 0.0 Nucleated RBC % 0.0 Sodium 135 L Potassium 3.7 Chloride 101 Carbon Dioxide 26 Anion Gap 8 BUN 17 Creatinine 0.70 Estim Creat Clear Calc 103 Estimated GFR > 60 Glucose 126 H Calcium 8.2 L Procedures/Treatments: L TKA Discharge Plan Discharge Patient Disposition: Home Health Service Discharge Instructions: Per Care Coordination: [facility] will contact you prior to their first visit. [facility] will follow for RN and PT/OT eval and treat. [facility] can be contacted at [phone]. Patient Instructions: Antibiotic Form Stand Alone Forms: General Discharge Information Follow-up/Referrals: Rashaun Field MD [Physician] - 3 Weeks Discharge Medications: New oxycodone-acetaminophen [Percocet] 5-325 mg tablet 1 tablet PO Q6H PRN (Reason: pain) Qty: 50 0RF celecoxib [Celebrex] 200 mg capsule 200 mg PO BID PRN (Reason: pain) Qty: 30 0RF Continued aspirin 81 mg capsule 81 mg PO QAM Hold Instructions: Resume on 06/29/21. vitamin A-vitamin C-vit E-min Tablet 1 tablet PO QAM omega-3 fatty acids Capsule 500 mg PO DAILY benazepril-hydrochlorothiazide 20-12.5 mg tablet 1 tablet PO QAM amlodipine 10 mg tablet 10 mg PO QAM ZzzQuil 50 mg/30 mL Liquid 50 mg PO HS PRN (Reason: Sleep) psyllium Packet 1 packet PO DAILY
[2022-02-07] MEDS: oxyCODONE/ACETAMINOPHEN (*CRX) 5-325 MG TABLET 1 TABLET PO (15:48)
== END 2022-02-07 16:05 | disposition home health service (06) ==
LOC: ANHSURGERY 06:11 → ANH3MED 11:23
PROVIDERS: PCP Family Medicine; Visit Provider Orthopaedic Surgery
PROC: (CPT 27447; principal; 2022-02-06 07:30)
DX: M17.12 Unilateral primary osteoarthritis, left knee (principal); G89.18 Other acute postprocedural pain; I10 Essential (primary) hypertension; G47.33 Obstructive sleep apnea (adult) (pediatric); F41.9 Anxiety disorder, unspecified; Z79.82 Long term (current) use of aspirin; Z96.651 Presence of right artificial knee joint; F12.90 Cannabis use, unspecified, uncomplicated; E66.9 Obesity, unspecified; Z68.30 Body mass index [BMI] 30.0-30.9, adult
CPT/HCPCS: 27447; 64447; 36415; 73560; 80048; 85025; 86850; 86900; 86901; 97110; 97116; 97161; 97165; 97535; A9270; C1713; C1776; J0171; J0690; J1100; J1170; J1885; J2250; J2270; J2405; J2704; J2795; J3010; J7030; J7120

== ENCOUNTER 2022-03-26 14:00 | Outpatient (RCR) | payer OTHER, SELFPAY ==
--- NOTE | 2022-02-27 14:15 | PTOPEVAL1 ---
Assessment and note entered by Graeme Gee, PT Evaluation Information Assessment Status Evaluation Diagnosis L TKA Onset 02/07/22 Subjective Information Patient had a L TKA on 02/06/22. He had his followup with his surgeon on 02/26/22 after three weeks of home health physical therapy. Patient had the R knee replaced 8 months ago. According to the patient the surgeon has cleared him to use a cane, ride a stationary bike, and get in the pool for standing exercises. Reported Pain Level Pain Score 5: Self Report Assessment PT Clinical Summary Edgar is a 61 year old male coming into the clinic 3 weeks post op from a L total knee surgery . He has 102 degrees active flexion along with - 10 degrees of extension. Besides his L knee flexion his strength is grossly 4+/5 on both lower extremities. He does have tight calfs. Increased swelling expected after surgery and pain . Patient could benefit from skilled physical therapy to work on improved range of motion and strengthening to improve roasterman function of the surgery along with progress away from the assistive device. The patient also will receive modalities for pain and edema control. Plan of Care Interventions Electrical Stimulation,Gait Training,Hot Pack/Cold Pack,Manual Therapy,Neuro Re-education,Patient/ Caregiver Education,Therapeutic Activities, Therapeutic Exercise,Ultrasound PT Services Indicated Yes Treatment Frequency and 2x/wk for 4 weeks Duration These treatments will address the objective and functional deficits as defined above. The patient will be advanced safely and appropriately in order for the patient to progress towards his/her prior level of function. Additional exercises will be introduced and as well as a comprehensive home exercise program upon discharge, if needed, ?to ensure carryover of functional gains achieved in the clinic. This treatment plan has been reviewed and agreement upon by the patient.
--- NOTE | 2022-03-26 14:52 | PTOPDC ---
Assessment and note entered by Graeme Gee, PT Evaluation Information Assessment Status Discharge Diagnosis L TKA Onset 02/07/22 Subjective Information Edgar reports that he is doing great, he is working out at the [facility] doing aquatic therapy, riding the bike, machines with high reps and low weights. He feels like he is capable to continue to do his exercises at home or at the gym. Reported Pain Level Pain Score 2: Self Report Assessment PT Clinical Summary Edgar is a 61 year old male coming ot the clinic for rehab after a L TKA. He was evaluated on and came to 8 sessions. He has equal active range of motion in his knees. 5/5 Strength on the L knee and a normal gait pattern without assistive device. Patient has been instructed at the gym to do high reps low weight resistance exercises along with the bike, aquatic therapy, and walking. Discharged from skilled physical therapy. Plan of Care PT Services Indicated No Treatment Frequency and Discharged from skilled physical therapy Duration
== END 2022-03-27 08:43 | disposition home or self-care (01) ==
LOC: ANHPT 14:00
PROVIDERS: PCP Family Medicine; Visit Provider Orthopaedic Surgery
DX: Z47.1 Aftercare following joint replacement surgery (principal); Z96.653 Presence of artificial knee joint, bilateral
CPT/HCPCS: 97014; 97110; 97112; 97140; 97161; 97530; G0283

== ENCOUNTER 2022-05-21 08:09 | Outpatient (CLI) | payer OTHER, SELFPAY ==
[2022-05-21 12:44] LABS: Alanine Aminotransferase 37 U/L (6-50); Albumin Level 4.2 g/dL (3.5-5.1); Alkaline Phosphatase 110 U/L (38-126); Anion Gap 8 mmol/L (8-16); Aspartate Amino Transferase 60 U/L (17-59); Bilirubin,Total 0.6 mg/dL (0.2-1.3); Blood Urea Nitrogen 17 mg/dL (9-20); Calcium 8.9 mg/dL (8.4-10.2); Carbon Dioxide 30 mmol/L (22-30); Chloride 101 mmol/L (98-107); Cholesterol 197 mg/dL (0-200); Estimated Glomerular Filt Rate > 60; Glucose 109 mg/dL (65-110); HDL Direct 41 mg/dL; Potassium 3.9 mmol/L (3.4-5.0); Sodium 139 mmol/L (137-145); Triglycerides 108 mg/dL (<150)
[2022-05-21 12:55] LABS: LDL Cholesterol Direct 110 mg/dL
[2022-05-21 13:15] LABS: Prostate Specific Antigen 2.4 ng/mL (< OR = 4.0)
== END 2022-05-21 08:10 | disposition home or self-care (01) ==
LOC: ANHGOSHLAB 08:09
PROVIDERS: PCP Family Medicine; Visit Provider Family Medicine
DX: Z13.220 Encounter for screening for lipoid disorders (principal); I10 Essential (primary) hypertension; Z12.5 Encounter for screening for malignant neoplasm of prostate
CPT/HCPCS: 36415; 80053; 80061; 84153; G0103

== ENCOUNTER 2023-02-26 01:33 | Day surgery (SDC) | payer OTHER, SELFPAY ==
[2023-02-11 14:49] VITALS: BMI 29.6
--- NOTE | 2023-02-22 14:17 | SUR.PREOP ---
Patient called regarding upcoming procedure. Reviewed preop instructions, appointment times, and procedure prep.
[2023-02-26 08:13] VITALS: BP 139/89; PULSE 74; RESP 20; TEMP 36.4; O2SAT 99; BMI 31.4
[2023-02-26] MEDS: LACTATED RINGERS 1,000 ML 150 ML IV CONT (08:35)
--- NOTE | 2023-02-26 08:44 | PM.HPGS ---
History of Present Illness History of Present Illness Consent: Risks, benefits, and alternatives have been discussed and questions answered. Patient agrees to proceed with procedure. Chief complaint: neoplasm screening Narrative: Edgar New is a 62 year old male Presents for screening colonoscopy. Patient's current weight appetite and bowel movements are normal. Patient denies abdominal pain. Patient has had no bleeding. Family history noncontributory. Review of Systems Review of Systems: Review of systems noncontributory. [facility] Past Medical History Medical History Anxiety Degenerative joint disease of knee, right Elevated fasting blood sugar Hypertension Knee pain, right Left knee DJD Obstructive sleep apnea Surgical History Surgical History History of arthroscopy of left knee 1994 Hx of appendectomy 1971 S/P total knee arthroplasty RIGHT KNEE 05/31/21 Status post total left knee replacement Left TKA 02/06/2022 Family History Family History Other Hypertension Social History Social History Smoking status: Never smoker Second hand tobacco smoke exposure: No Additional smoking assessment comments: PT DENIES ALL FORMS OF TOBACCO USE Alcohol intake: never Substance use: current Substance use type: does not use Other substance usage details: 1 HIT DAILY AFTER WORK Lack of Transportation: No Lack of Food: Never True Current Housing: I Have Housing Concerned About Future Housing: No Difficulty Paying Gas/Electric Bills: No Difficulty Paying for Meds: No Currently Unemployed: No Education: Bachelor's Degree Difficulty w/ Childcare or Family Care: No Living arrangements: with family Additional living arrangements comments: Occupation/Education: occupation 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[employer]) State of [place] Gender identity (if verbalized by the patient): Male Sexual Orientation (if Verbalized by the Patient): Straight or Heterosexual Spiritual care concerns: No Meds Home Medications and Allergies Home Medications Medication Instructions Recorded Confirmed Type diphenhydramine HCl 50 mg/30 mL 50 mg PO HS PRN Sleep 05/22/21 02/12/23 History oral liquid (ZzzQuil) omega-3 fatty acids 500 mg PO DAILY 05/22/21 02/12/23 History psyllium 1 packet PO DAILY 05/22/21 02/12/23 History vitamin A-vitamin C-vit E-min 1 tablet PO QAM 05/22/21 02/12/23 History tablet benazepril 20 1 tablet PO QAM #90 tabs 11/27/22 02/12/23 Rx mg-hydrochlorothiazide 12.5 mg tablet amlodipine 10 mg tablet 10 mg PO QAM #90 tabs 01/10/23 02/12/23 Rx buspirone 10 mg tablet 10 mg PO BID #60 tabs 01/15/23 02/12/23 Rx Allergies Allergy/AdvReac Type Severity Reaction Status Date / Time Penicillins Allergy Intermediate RASH & Verified 02/12/23 12:03 HIVES Vital Signs Vital Signs - 24 hr 02/26/23 08:13 Temperature 97.5 F L Pulse Rate 74 Respiratory Rate 20 Blood Pressure 139/89 Pulse Oximetry 99 Oxygen Delivery Room Air Exam Narrative: Physical exam reveals patient to be alert. Vital signs stable. HEENT exam is unremarkable. Patient is anicteric. Lungs are clear to auscultation and percussion. Heart is without murmur or extra sounds. Abdomen bowel sounds are present soft nontender with no organomegaly. Digital external rectal exam normal. Assessment and Plan Assessment and plan (1) Encounter for screening colonoscopy: Code(s): Z12.11 - Encounter for screening for malignant neoplasm of colon Status: Acute Assessment and Plan: Patient presents for screening colonoscopy. He appears to be at average risk for colon polyps. Further recommendations may be g
--- NOTE | 2023-02-26 09:06 | WPDANESEPPF ---
Anes - Initial Pre Proc Eval Procedure: Operation Date: 02/26/23 09:30 Proposed Procedures p Screening Colonoscopy - Pan Mares MD Date/Time: 02/26/23 09:06 Surgeon: Pan Mares MD Pre Op Diagnosis: neoplasm screening Patient Data Age: 62 Gender: M Height: 1.73 m Weight: 93.9 kg Last Vital Signs Temp 97.5 F L 02/26/23 08:13 Pulse 74 02/26/23 08:13 Resp 20 02/26/23 08:13 BP 139/89 02/26/23 08:13 Pulse Ox 99 02/26/23 08:13 O2 Del Method Room Air 02/26/23 08:13 Allergies Allergy/AdvReac Type Severity Reaction Status Date / Time Penicillins Allergy Intermediate RASH & Verified 02/12/23 12:03 HIVES Home Medications Medication Instructions Recorded Confirmed Type diphenhydramine HCl 50 mg/30 mL 50 mg PO HS PRN Sleep 05/22/21 02/12/23 History oral liquid (ZzzQuil) omega-3 fatty acids 500 mg PO DAILY 05/22/21 02/12/23 History psyllium 1 packet PO DAILY 05/22/21 02/12/23 History vitamin A-vitamin C-vit E-min 1 tablet PO QAM 05/22/21 02/12/23 History tablet benazepril 20 1 tablet PO QAM #90 tabs 11/27/22 02/12/23 Rx mg-hydrochlorothiazide 12.5 mg tablet amlodipine 10 mg tablet 10 mg PO QAM #90 tabs 01/10/23 02/12/23 Rx buspirone 10 mg tablet 10 mg PO BID #60 tabs 01/15/23 02/12/23 Rx Patient hx anesthesia problems: none Family hx anesthesia problems: none Results Review: All pre-operative results and documents have been reviewed as part of the pre-operative evaluation. [facility] Past Medical History Medical History Anxiety Degenerative joint disease of knee, right Elevated fasting blood sugar Hypertension Knee pain, right Left knee DJD Obstructive sleep apnea Surgical History Surgical History History of arthroscopy of left knee 1995 Hx of appendectomy 1972 S/P total knee arthroplasty RIGHT KNEE 05/31/21 Status post total left knee replacement Left TKA 02/06/2022 Family History Family History Other Hypertension Social History Social History Smoking status: Never smoker Second hand tobacco smoke exposure: No Additional smoking assessment comments: PT DENIES ALL FORMS OF TOBACCO USE Alcohol intake: never Substance use: current Substance use type: does not use Other substance usage details: 1 HIT DAILY AFTER WORK Lack of Transportation: No Lack of Food: Never True Current Housing: I Have Housing Concerned About Future Housing: No Difficulty Paying Gas/Electric Bills: No Difficulty Paying for Meds: No Currently Unemployed: No Education: Bachelor's Degree Difficulty w/ Childcare or Family Care: No Living arrangements: with family Additional living arrangements comments: Occupation/Education: occupation 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 [place] Gender identity (if verbalized by the patient): Male Sexual Orientation (if Verbalized by the Patient): Straight or Heterosexual Spiritual care concerns: No Anes - Eval Final PreProcedure Day of Procedure 02/26/23 09:06 Patient weight: obese Heart: regular rate and rhythm Lungs: clear to auscultation Airway: Mallampati scale class II Neurological: alert and oriented Last oral intake: >/= 8 hours ASA classification: II Emergent: no Anesthetic plan: proceed Anesthesia type and monitoring: general GIVS and standard monitoring Results Review: All pre-operative results and documents have been reviewed as part of the pre-operative evaluation. Informed Consent: The patient's anesthetic plan and its attendant risks and benefits were discussed with the patient/family/POA. Questions were solicited and answers provided to the satisfaction of the patient/family/POA.
[2023-02-26 09:47] VITALS: BP 132/79; PULSE 74; RESP 16; O2SAT 94
[2023-02-26 09:57] VITALS: BP 130/83; PULSE 75; RESP 18; O2SAT 97
[2023-02-26 10:07] VITALS: BP 130/83; PULSE 60; RESP 23; O2SAT 98
== END 2023-02-26 10:17 | disposition home or self-care (01) ==
PROVIDERS: PCP Family Medicine; Visit Provider Internal Medicine Gastroenterology
PROC: 0DJD8ZZ Inspection of Lower Intestinal Tract, Via Natural or Artificial Opening Endoscopic (ICD-10-PCS; CPT 45378; principal; 2023-02-26 09:30)
DX: Z12.11 Encounter for screening for malignant neoplasm of colon (principal); K64.8 Other hemorrhoids; F41.9 Anxiety disorder, unspecified; I10 Essential (primary) hypertension; G47.33 Obstructive sleep apnea (adult) (pediatric); E66.9 Obesity, unspecified; Z68.31 Body mass index [BMI] 31.0-31.9, adult; Z96.652 Presence of left artificial knee joint; Z90.89 Acquired absence of other organs
CPT/HCPCS: 45378; J2001; J2704; J7120

== ENCOUNTER 2023-06-07 08:04 | Outpatient (CLI) | payer OTHER, SELFPAY ==
[2023-06-07 19:28] LABS: Alanine Aminotransferase 66 U/L (6-50); Albumin Level 4.3 g/dL (3.5-5.1); Alkaline Phosphatase 123 U/L (38-126); Anion Gap 7 mmol/L (8-16); Aspartate Amino Transferase 60 U/L (17-59); Blood Urea Nitrogen 18 mg/dL (9-20); Calcium 9.5 mg/dL (8.4-10.2); Carbon Dioxide 29 mmol/L (22-30); Chloride 100 mmol/L (98-107); Cholesterol 192 mg/dL (0-200); Estimated Glomerular Filt Rate > 60; Glucose 105 mg/dL (65-110); HDL Direct 37 mg/dL; Potassium 3.6 mmol/L (3.4-5.0); Sodium 136 mmol/L (137-145); Triglycerides 156 mg/dL (<150)
[2023-06-07 19:39] LABS: LDL Cholesterol Direct 126 mg/dL
== END 2023-06-07 08:05 | disposition home or self-care (01) ==
LOC: ANHGOSHLAB 08:06
PROVIDERS: PCP Family Medicine; Visit Provider Family Medicine
DX: Z13.228 Encounter for screening for other metabolic disorders (principal); Z13.220 Encounter for screening for lipoid disorders; Z12.5 Encounter for screening for malignant neoplasm of prostate
CPT/HCPCS: 36415; 80053; 80061; 84153; G0103

== ENCOUNTER → 2023-06-07 08:21 | Outpatient (CLI) | payer OTHER, SELFPAY ==
--- NOTE | ~2023-06-07 | XR_ITS ---
Right Hand Technique: PA, oblique, and lateral views were obtained. Clinical History: Pain Findings: No acute fracture or dislocation is seen. There is advanced degenerative change of the firs t CMC joint. Soft tissues are unremarkable. Impression: Advanced degenerative change of the first CMC joint. Reviewed, dictated and finalized at location . 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
== END ==
PROVIDERS: PCP Family Medicine; Visit Provider Family Medicine
DX: M19.041 Primary osteoarthritis, right hand (principal)
CPT/HCPCS: 73130

== ENCOUNTER 2023-09-05 15:00 | Outpatient (RCR) | payer OTHER, SELFPAY ==
--- NOTE | 2023-07-30 14:01 | OTOPEVAL1 ---
Assessment and note entered by Shady Jacobson, GAYE/Bernadette, CHT Evaluation Information Assessment Status Evaluation Diagnosis Pain in right finger(s) Subjective Information Patient reports right thumb pain as well as generalized hand pain. 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 Reports the pain is the worst after a work day and especially after the work week. Pain tends to calm down over the weekend when he can rest his hand. Reports difficulties opening a jar, buttoning buttons, pinching objects, writing, etc. Reported Pain Level Pain Score 2: Self Report Assessment OT Clinical Summary Patient referred to OT with right hand pain. 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 He presents with thumb pain and stiffness which is restricting his ability to complete gripping, pinching, writing, and typing. Skilled OT indicated for splinting, HEP instruction, joint protection education, strengthening, manual therapy, and modalities for pain control. Plan of Care Interventions Therapeutic Exercise,Manual Therapy,Therapeutic Activities,Hot Pack/Cold Pack,Check Out for Orthotic/Pr,Ultrasound,Paraffin OT Services Indicated Yes Treatment Frequency and 1x/week for 6 visits Duration These treatments will address the objective and functional deficits as defined above. The patient will be advanced safely and appropriately in order for the patient to progress towards his/her prior level of function. Additional exercises will be introduced and as well as a comprehensive home exercise program upon discharge, if needed, ?to ensure carryover of functional gains achieved in the clinic. This treatment plan has been reviewed and agreement upon by the patient.
--- NOTE | 2023-07-30 14:01 | OPREHPOC ---
Outpatient Therapy Plan of Care This is a Multidisciplinary Plan of Care that may contain components documented by all disciplines (PT, OT, and ST.) OT Goal 1 Goal 1. Patient to be independent with instructed materials. Target Visit 6 OT Problem 2 OT Problem #2 Pain OT Goal 1 Goal 1. Patient to report times of 0/10 pain. 2. Patient to report pain 2/10 or less with ADLs. Target Visit 6 OT Problem 3 OT Problem #3 Impaired Flexibility OT Goal 1 Goal 1. Patient to be able to complete serial opposition with slide to base of V without pain. Target Visit 6 OT Problem 4 OT Problem #4 Impaired Strength OT Goal 1 Goal 1. Patient to be able to complete gentle mine laborer/ pinch strengthening with yellow theraputty x5 minutes without pain. Target Visit 6
--- NOTE | 2023-09-05 15:30 | OTOPDC ---
Assessment and note entered by Shady Jacobson, OTR/Bernadette, SAMIAT OT D/C 09/05/23 Diagnosis Pain in right finger(s) Subjective Information Patient reports minimal changes in his hand pain. He reports he has been wearing his thumb spica brace at work and this helps him rest his thumb, but in general he is experiencing the same amounts of pain. Reports it's the worst at the end of the week particularly. He intermittently is woken up at night from the pain. Assessment OT Clinical Summary Patient referred to OT with right hand pain, consistent with OA. Patient has been utilizing a thumb spica splint, performing ROM, and using light putty for strengthening of the hand/thumb. At this time his ROM has returned to functional limits. At the start of care he was unable to oppose the thumb to the base of digit 5 (measuring 3 cm gap). Today he was able to flex the thumb across the palm with slight increase in pain. Wrist ROM returned to normal limits (was measuring 45 deg. of wrist flexion and this improved to 60) . Patient continues to experience daily pain in the thumb and has limited functional pinching strength due to pain. We have discussed joint protection techniques of respecting pain and utilizing other joints to get a task done. He demonstrates excellent understanding of all materials. D/C OT with goals partially met. Plan of Care OT Services Indicated No
== END 2023-09-05 15:46 | disposition home or self-care (01) ==
LOC: ANHGOSHOT 15:00
PROVIDERS: PCP Family Medicine; Visit Provider Family Medicine
DX: M79.644 Pain in right finger(s) (principal); G89.29 Other chronic pain
CPT/HCPCS: 97018; 97035; 97110; 97140; 97165; L3913

== ENCOUNTER 2023-11-29 08:05 | Outpatient (CLI) | payer OTHER, SELFPAY ==
[2023-11-29 14:23] LABS: Alanine Aminotransferase 58 U/L (6-50); Albumin Level 4.3 g/dL (3.5-5.1); Alkaline Phosphatase 122 U/L (38-126); Anion Gap 9 mmol/L (4-12); Aspartate Amino Transferase 97 U/L (17-59); Bilirubin,Total 0.4 mg/dL (0.2-1.3); Blood Urea Nitrogen 17 mg/dL (9-20); Calcium 9.3 mg/dL (8.4-10.2); Carbon Dioxide 30 mmol/L (22-30); Chloride 99 mmol/L (98-107); Estimated Glomerular Filt Rate > 60; Glucose 117 mg/dL (65-110); Potassium 3.8 mmol/L (3.4-5.0); Sodium 138 mmol/L (137-145)
== END 2023-11-29 08:06 | disposition home or self-care (01) ==
LOC: ANHGOSHLAB 08:07
PROVIDERS: PCP Family Medicine; Visit Provider Family Medicine
DX: Z13.228 Encounter for screening for other metabolic disorders (principal)
CPT/HCPCS: 36415; 80053

== ENCOUNTER 2024-08-07 11:34 | Outpatient (CLI) | payer OTHER, SELFPAY ==
[2024-08-07 18:08] LABS: Basophils Percent Auto 0.7 % (0.2-1.2); Eosinophils Absolute Auto 0.3 K/mm3 (0-0.3); Eosinophils Percent Auto 4.9 % (0-4.4); Hemoglobin 16.6 g/dL (14.0-18.0); Immature Granulocyte Absolute 0.02 K/mm3 (0.00-0.031); Immature Granulocyte Percent A 0.3 % (0-0.5); Lymphocytes Absolute Auto 1.75 K/mm3 (0.9-3.2); Lymphocytes Percent Auto 30.6 % (18.3-44.2); Mean Corpuscular HGB Conc 33.9 g/dl (32-36); Mean Corpuscular Hemoglobin 30.9 pg (26-34); Mean Corpuscular Volume 91.1 fl (80-100); Monocytes Absolute Auto 0.7 K/mm3 (0.1-0.6); Monocytes Percent Auto 11.5 % (2.6-8.5); Platelet Count Result 292 k/mm3 (150-375); Red Blood Count 5.38 M/mm3 (4.6-6.20); Red Cell Distribution Width 12.1 % (11.5-14.5); White Blood Count 5.7 K/mm3 (4.5-10.0)
[2024-08-07 18:13] LABS: Alanine Aminotransferase 30 U/L (6-50); Albumin Level 4.5 g/dL (3.5-5.1); Alkaline Phosphatase 97 U/L (38-126); Anion Gap 7 mmol/L (4-12); Aspartate Amino Transferase 39 U/L (17-59); Bilirubin,Total 0.7 mg/dL (0.2-1.3); Blood Urea Nitrogen 22 mg/dL (9-20); Calcium 9.4 mg/dL (8.4-10.2); Carbon Dioxide 31 mmol/L (22-30); Chloride 99 mmol/L (98-107); Cholesterol 194 mg/dL (0-200); Estimated Glomerular Filt Rate > 60; Glucose 94 mg/dL (65-110); HDL Direct 45 mg/dL; Sodium 137 mmol/L (137-145); Triglycerides 133 mg/dL (<150)
[2024-08-07 18:24] LABS: LDL Cholesterol Direct 104 mg/dL
[2024-08-07 18:43] LABS: Prostate Specific Antigen 3.2 ng/mL (< OR = 4.0)
--- OUTSIDE RECORDS SUMMARY | 2024-08-08 12:51 | XMS_ITS | Clinical Summary ---
Author Organization [facility] Address [address] [place] [id number] Care Team Providers Care Desk Assistant Name Role Phone Unavailable Primary Care Provider Unavailabl e Social History Tobacco Use Types Packs/Day Years Used Date Smoking Tobacco: Never Assessed Sex and Gender Information Value Date Recorded Sex Assigned at Not on file Legal Sex Male 10:30 PM CDT Gender Identity Not on file Sexual Orientation Not on file Plan of Treatment Health Maintenance Due Date Last Done Comments Colorectal Cancer Screening Colonoscopy (10 Years) 1960 Annual Physical 1963 Hepatitis C 1978 DTaP, Tdap and Td Vaccines ( 1 - Tdap) 1979 Pneumococcal Vaccine: 50+ Ye ars (1 of 1 - PCV) 2010 Zoster Vaccines (1 of 2) 2010 COVID-19 Vaccine ( - 2023-2 5 season) 2023 RSV Immunization or 60+ Years (1 - 1-dose 75+ series) 2035 Meningococcal B Vaccine Aged Out No l onger eligible based on patient's age to complete this topic Meningococcal Vaccine Aged Out No tamia victor manuel eligible based on patient's age to complete this topic RSV Immunizations Under 20 Months Aged Out No longer eligible based on patient's age to complete this topic
== END 2024-08-07 11:35 | disposition home or self-care (01) ==
LOC: ANHGOSHLAB 11:35
PROVIDERS: PCP Internal Medicine; Visit Provider Clinical Nurse Specialist
DX: I10 Essential (primary) hypertension (principal); Z13.228 Encounter for screening for other metabolic disorders; Z12.5 Encounter for screening for malignant neoplasm of prostate
CPT/HCPCS: 36415; 80053; 80061; 84153; 85025; G0103

== ENCOUNTER 2025-02-18 09:07 | Outpatient (CLI) | payer OTHER, SELFPAY ==
[2025-02-18 13:06] LABS: Alanine Aminotransferase 33 U/L (6-50); Albumin Level 4.7 g/dL (3.5-5.1); Alkaline Phosphatase 101 U/L (38-126); Anion Gap 8 mmol/L (4-12); Aspartate Amino Transferase 94 U/L (17-59); Bilirubin,Total 0.8 mg/dL (0.2-1.3); Blood Urea Nitrogen 15 mg/dL (9-20); Calcium 9.8 mg/dL (8.4-10.2); Carbon Dioxide 30 mmol/L (22-30); Chloride 100 mmol/L (98-107); Estimated Glomerular Filt Rate > 60; Glucose 94 mg/dL (65-110); Potassium 3.6 mmol/L (3.4-5.0); Sodium 138 mmol/L (137-145); Total Protein 8.1 g/dL (6.3-8.2)
[2025-02-18 13:42] LABS: Prostate Specific Antigen 4.2 ng/mL (< OR = 4.0)
[2025-02-18 16:11] LABS: Hemoglobin A1C 5.5 % (<5.7)
== END 2025-02-18 09:08 | disposition home or self-care (01) ==
LOC: ANHGOSHLAB 09:07
PROVIDERS: PCP Internal Medicine; Visit Provider Clinical Nurse Specialist
DX: R73.01 Impaired fasting glucose (principal); I10 Essential (primary) hypertension; R97.20 Elevated prostate specific antigen [PSA]
CPT/HCPCS: 36415; 80053; 83036; 84153

== ENCOUNTER 2025-03-09 07:05 | Outpatient (CLI) | payer OTHER, SELFPAY ==
--- NOTE | ~2025-03-09 | US_ITS ---
US right upper quadrant INDICATION: Elevated liver function tests PROCEDURE: Realtime right upper abdominal ultrasound. COMPARISON: No prior studies for comparison. FINDINGS: The pancreas is normal without focal mass or pancreatic ductal dilation. Liver echotexture is increased, consistent with fatty infiltration. There is normal directional flow in the portal vein. The gallbladder is normal without stones, gallbladder wall thickening or pericholecystic fluid. Common bile duct measures 2 mm. No sonographic Benton's sign. IMPRESSION: 1: Fatty infiltration of the liver. Reviewed, dictated and finalized at location I. TS PSYCHOLOGIST
== END 2025-03-09 07:06 | disposition home or self-care (01) ==
PROVIDERS: PCP Internal Medicine; Visit Provider Clinical Nurse Specialist
DX: R74.01 Elevation of levels of liver transaminase levels (principal); K76.0 Fatty (change of) liver, not elsewhere classified
CPT/HCPCS: 76705